=== PATIENT | female | born 1995 | race Hispanic/Latino ===

== ENCOUNTER 2021-10-12 09:52 | Outpatient (CLI) | payer OTHER ==
[2021-10-12 21:25] LABS: SARS-CoV-2 PCR by NAA DETECTED (NotDetected)
== END 2021-10-12 09:53 | disposition home or self-care (01) ==
LOC: CSHLAB 09:52
PROVIDERS: ATTEND Student in an Organized Health Care Education/Training Program
DX: U07.1 COVID-19 (principal)
CPT/HCPCS: U0003; U0005

== ENCOUNTER 2021-10-15 13:08 | Day surgery (SDC) | payer OTHER ==
[2021-10-15] MEDS ORDERED: Acetaminophen 500 MG TAB PO SCH (13:45)
[2021-10-15 14:14] VITALS: BMI 31.2
[2021-10-15] MEDS ORDERED: Iron Sucrose Complex 500 MG in Sodium Chloride 0.9% 250 ML 250 ML IVPB SCH (14:15)
[2021-10-15] MEDS ORDERED: diphenhydrAMINE 50 MG/ML VIAL ONE (15:10)
== END 2021-10-15 22:44 | disposition home or self-care (01) ==
LOC: CSHLD/OP 13:08
PROVIDERS: ATTEND Obstetrics & Gynecology
DX: O99.013 Anemia complicating pregnancy, third trimester (principal); O24.410 Gestational diabetes mellitus in pregnancy, diet controlled; O98.513 Other viral diseases complicating pregnancy, third trimester; U07.1 COVID-19; O34.211 Maternal care for low transverse scar from previous cesarean delivery; O47.1 False labor at or after 37 completed weeks of gestation; Z3A.37 37 weeks gestation of pregnancy
CPT/HCPCS: 96361; 96365; 96366; 99283; J1200; J1756; J7050

== ENCOUNTER 2021-10-31 07:22 | Inpatient (IN) | payer MEDICAID, OTHER ==
[2021-10-31] MEDS ORDERED: Bupivacaine/Epinephrine 0.25% 30 ML VIAL ONE (08:00)
[2021-10-31] MEDS ORDERED: Bupivacaine 0.25% HCL 30 ML VIAL ONE (08:00)
[2021-10-31] MEDS ORDERED: hydrALAZINE 20 MG/ML VIAL SLOW IVP PRN ×2 (09:29→09:42)
[2021-10-31] MEDS ORDERED: Carboprost 250 MCG/ML AMP IM PRN (09:42)
[2021-10-31] MEDS ORDERED: Promethazine HCl 25 MG/ML VIAL IM PRN (09:42)
[2021-10-31] MEDS ORDERED: Acetaminophen 500 MG TAB PO PRN (09:42)
[2021-10-31] MEDS ORDERED: Misoprostol 200 MCG TAB PR PRN (09:42)
[2021-10-31] MEDS ORDERED: Ondansetron PF 4 MG/2 ML Vial IVP PRN (09:42)
[2021-10-31] MEDS ORDERED: Ibuprofen 800 MG TAB PO PRN (09:42)
[2021-10-31] MEDS ORDERED: Diphenoxylate HCl/Atropine Tablet PO PRN ×2 (09:42)
[2021-10-31] MEDS ORDERED: Lidocaine 1% (PF) 30 ML VIAL SC PRN (09:42)
[2021-10-31] MEDS ORDERED: Methylergonovine 0.2 MG/ML VIAL IM PRN (09:42)
[2021-10-31] MEDS ORDERED: Lactated Ringer's 1,000 ML IV SCH (09:45)
[2021-10-31] MEDS ORDERED: NS w/ Oxytocin 30 units 500 ML IV SCH ×2 (09:45)
[2021-10-31 09:51] VITALS: BMI 29.6
[2021-10-31 10:16] LABS: Hemoglobin 12.4 g/dL (12.0-15.5); Mean Corpuscular Volume 91.3 fl (81.6-98.3); Red Blood Cell (RBC) Count 4.04 10x6/uL (3.90-5.03); White Blood Cell (WBC) Count 10.3 10x3/uL (3.5-10.5)
[2021-10-31 10:17] LABS: Mean Corpuscular HGB CONC 33.6 g/dL (32.0-36.0); Mean Corpuscular Hemoglobin 30.7 pg (27.0-33.0); Platelet Count 208 10x3/uL (150-450); RBC Distribution Width 15.7 % (11.5-14.5)
[2021-10-31] MEDS: Fentanyl 2 mcg/Bup 0.1% Cadd 100 ML ONE ×2 (10:44→17:34)
[2021-10-31 11:27] LABS: Syphilis Antibody Nonreactive (Nonreactive); Syphilis Antibody Index 0.02 S/CO (<1.00 Non-Reactive)
[2021-10-31 11:27] LABS: HBSAg Index 0.17 S/CO (0-0.99); Hep B Surf Ag NonReactive S/CO (NonReactive)
[2021-10-31] MEDS ORDERED: Fentanyl 2 mcg/Bup 0.1% Cadd 100 ML ONE (17:34)
[2021-10-31] MEDS ORDERED: Dexmedetomidine 200 MCG/2 ML VIAL ONE (21:05)
[2021-10-31] MEDS ORDERED: ceFAZolin 2 GM/Dextrose 50 ML IVPB ONE (22:43)
[2021-11-01] MEDS ORDERED: NS w/ Oxytocin 30 units 500 ML IV SCH (00:58)
[2021-11-01] MEDS ORDERED: Milk Of Magnesia 30 ML UDCUP PO PRN (00:58)
[2021-11-01] MEDS ORDERED: Bisacodyl 10 MG SUPP PR PRN (00:58)
[2021-11-01] MEDS ORDERED: hydrALAZINE 20 MG/ML VIAL SLOW IVP PRN (00:58)
[2021-11-01] MEDS ORDERED: Boostrix 0.5 ML (Tdap) VIAL IM ONE (00:58)
[2021-11-01] MEDS ORDERED: CEFAZOLIN 1 GM VIAL SLOW IVP SCH (01:15)
[2021-11-01] MEDS ORDERED: Ferrous Sulfate 325 MG TAB PO SCH (08:00)
[2021-11-01] MEDS ORDERED: Magnesium Citrate 300 ML BOT PO PRN (08:36)
[2021-11-01] MEDS ORDERED: Benzocaine-Menthol 82.5 ML CAN TOP PRN (08:59)
[2021-11-01] MEDS: Docusate 100 MG CAP PO SCH ×2 (09:03→21:42)
[2021-11-01] MEDS: Polyethylene Glycol 3350 17 GM Packet PO SCH ×2 (09:06→21:15)
[2021-11-01] MEDS: Ibuprofen 800 MG TAB PO SCH ×3 (09:07→21:41)
[2021-11-01] MEDS: Acetaminophen 325 MG TAB PO PRN (12:16)
[2021-11-01 20:53] VITALS: TEMP 97.7
[2021-11-02] MEDS ORDERED: HYDROcodone/Acetaminophen 5/325 mg Tablet PO SCH ×2 (01:00→05:30)
[2021-11-02] MEDS: Ibuprofen 800 MG TAB PO SCH ×2 (05:23→14:36)
[2021-11-02 07:54] VITALS: BP 110/64
[2021-11-02] MEDS: Docusate 100 MG CAP PO SCH (10:20)
[2021-11-02] MEDS: Acetaminophen 325 MG TAB PO PRN (10:20)
[2021-11-02] MEDS: Polyethylene Glycol 3350 17 GM Packet PO SCH (10:21)
== END 2021-11-02 17:20 | disposition home or self-care (01) | DRG 768 ==
LOC: CSHLD/OP 07:22 → CSHLD 09:49 → CSHPP 11-01 01:23
PROVIDERS: ADMIT Family Medicine; ATTEND Family Medicine
PROC: 10D07Z6 Extraction of Products of Conception, Vacuum, Via Natural or Artificial Opening (ICD-10-PCS; principal; 2021-10-31)
PROC: 0DQR0ZZ Repair Anal Sphincter, Open Approach (ICD-10-PCS; 2021-10-31)
PROC: 0W8NXZZ Division of Female Perineum, External Approach (ICD-10-PCS; 2021-10-31)
PROC: 10907ZC Drainage of Amniotic Fluid, Therapeutic from Products of Conception, Via Natural or Artificial Opening (ICD-10-PCS; 2021-10-31)
PROC: 10H07YZ Insertion of Other Device into Products of Conception, Via Natural or Artificial Opening (ICD-10-PCS; 2021-10-31)
DX: O24.429 Gestational diabetes mellitus in childbirth, unspecified control (principal); Z37.0 Single live birth; O70.20 Third degree perineal laceration during delivery, unspecified; O99.02 Anemia complicating childbirth; D64.9 Anemia, unspecified; O76 Abnormality in fetal heart rate and rhythm complicating labor and delivery; O32.8XX0 Maternal care for other malpresentation of fetus, not applicable or unspecified; O77.0 Labor and delivery complicated by meconium in amniotic fluid; O32.2XX0 Maternal care for transverse and oblique lie, not applicable or unspecified; O75.81 Maternal exhaustion complicating labor and delivery; O69.89X0 Labor and delivery complicated by other cord complications, not applicable or unspecified; Z3A.39 39 weeks gestation of pregnancy; Z79.899 Other long term (current) drug therapy; Z98.891 History of uterine scar from previous surgery
CPT/HCPCS: 51702; 85027; 86780; 86850; 86900; 86901; 87340; 99285; J0690; J2590; S0020